=== PATIENT | male | born 1995 | race Caucasian/White ===

== ENCOUNTER 2020-09-24 20:09 | Emergency (ER) | payer OTHER ==
[~2020-09-24] VITALS: Ht 180.3 cm; Wt 79.5 kg
[2020-09-24] MEDS ORDERED: KETOROLAC 60MG 2ML VIAL IM ONE (22:15)
[2020-09-24] MEDS ORDERED: diazePAM 5MG TABLET PO ONE (22:15)
[2020-09-24] MEDS ORDERED: CYCL-707 PO (23:42)
[2020-09-24 23:58] VITALS: BP 116/64
== END 2020-09-25 00:05 | disposition home or self-care (01) ==
LOC: M ED 20:09
DX: S39.012A Strain of muscle, fascia and tendon of lower back, initial encounter (principal); X58.XXXA Exposure to other specified factors, initial encounter; Y92.018 Other place in single-family (private) house as the place of occurrence of the external cause
CPT/HCPCS: 96372; 99284; J1885